=== PATIENT | male | born 1965 | race Caucasian/White ===

== ENCOUNTER 2017-07-31 13:34 | Emergency (ER) | payer BC ==
--- NOTE | 2017-07-31 14:54 | EDM.PDOC ---
ED HPI GENERAL MEDICAL PROBLEM - General Chief Complaint: Lower Extremity Injury/Pain Stated Complaint: LT HIP PAIN Time Seen by Provider: 07/31/17 13:51 Source of Information: Reports: Patient, RN Notes Reviewed - History of Present Illness INITIAL COMMENTS - FREE TEXT/NARRATIVE: 51-year-old male comes in with left low back pain. He has had this intermittently in the past. This started bothering him again about 3-4 days ago and then became more severe yesterday and today. The pain is worse with any type of motion. He works as a log truck driver. It is difficult for him to get into and out of the truck. Even walking for him at this time is uncomfortable. The pain does not radiate. There is no fall or lifting injury that he is aware of. He is concerned about his left hip. He had similar discomfort about 20 years ago and he was told it "was his hip". Treatments CERTIFIED HEALTH EDUCATION SPECIALIST: Reports: Other (see below) Other Treatments CERTIFIED HEALTH EDUCATION SPECIALIST: none Left Hip Pain Score (Numeric/FACES): 3 - Related Data Allergies Allergy/AdvReac Type Severity Reaction Status Date / Time No Known Allergies Allergy Verified 07/31/17 13:54 Home Meds: Home Meds Cyclobenzaprine [Flexeril] 5 mg PO Q8HR PRN #14 tab 07/31/17 [Rx] Naproxen [Naprosyn] 500 mg PO Q12HR #14 tab 07/31/17 [Rx] Past Medical History Respiratory History: Reports: Other (See Below) Other Respiratory History: seasonal allergies Social & Family History - Tobacco Use Smoking Status *Q: Current Every Day Smoker Years of Tobacco use: 30 Packs/Tins Daily: 1 - Caffeine Use Caffeine Use: Reports: Coffee, Soda, Tea - Recreational Drug Use Recreational Drug Use: No Review of Systems - Review of Systems Review Of Systems: See Below Mouth/Throat: Reports: No Symptoms Respiratory: Denies: Shortness of Breath Cardiovascular: Denies: Chest Pain GI/Abdominal: Denies: Abdominal Pain, Nausea, Vomiting Musculoskeletal: Reports: Back Pain (Left low back) Skin: Reports: No Symptoms Neurological: Reports: No Symptoms ED EXAM, GENERAL - Physical Exam Exam: See Below General Appearance: Alert, No Apparent Distress Head: Atraumatic Neck: Supple, Full Range of Motion Respiratory/Chest: No Respiratory Distress, Lungs Clear, Normal Breath Sounds Cardiovascular: Regular Rate, Rhythm GI/Abdominal: Soft, Non-Tender Back Exam: Paraspinal Tenderness (Left low back localized to area of left sacroiliac joint), Other (Back pain worse with motion). No: Vertebral Tenderness Extremities: Normal Inspection, Normal Range of Motion Neurological: Alert, Oriented Skin Exam: Warm, Dry, Normal Color Course - Vital Signs Last Recorded V/S: Last Vital Signs Temp 98.0 F 07/31/17 13:50 Pulse 86 07/31/17 13:50 Resp 20 07/31/17 13:50 BP 139/93 H 07/31/17 13:50 Pulse Ox 98 07/31/17 13:50 - Orders/Labs/Meds Orders: Active Orders 24 hr Category Date Time Status Hip Min 2V or 3V w Pelvis Lt [CR] Stat Exams 07/31/17 14:15 Taken - Re-Assessments/Exams Free Text/Narrative Re-Assessment/Exam: 07/31/17 15:24 X-rays of the left hip are negative Departure - Departure Time of Disposition: 14:50 Disposition: Home, Self-Care 01 Condition: Fair Clinical Impression: Low back strain Qualifiers: Encounter type: initial encounter Qualified Code(s): S39.012A - Strain of muscle, fascia and tendon of lower back, initial encounter - Discharge Information Prescriptions: Cyclobenzaprine [Flexeril] 5 mg PO Q8HR PRN #14 tab PRN Reason: Pain Naproxen [Naprosyn] 500 mg PO Q12HR #14 tab Instructions: Low Back Strain Rehab-SportsMed Referrals: Renzo Chisholm PA-C [Primary Care Provider] - Forms: ED Department Discharge, ED Return to Work/School Form Additional Instructions: Naprosyn 500 mg twice daily for pain and inflammation, Flexeril 5 mg every 8-12 hours as needed for muscle spasm and for muscle relaxation, you also may take Tylenol 2-3 times daily if needed for extra pain relief, alternate heat and ice packs to area of discomfort for further pain relief and to help promote healing , follow-up clinic if not much better within 3-4 days as expected. - My Orders Last 24 Hours: My Active Orders 07/31/17 14:15 Hip Min 2V or 3V w Pelvis Lt [CR] Stat - Assessment/Plan Last 24 Hours: My Active Orders 07/31/17 14:15 Hip Min 2V or 3V w Pelvis Lt [CR] Stat
--- NOTE | 2017-08-02 08:54 | CR ---
Pelvis and left hip: AP view of the pelvis was obtained as well as AP and frog-leg lateral views of the left hip. Comparison: No prior exam. Joint spaces within both hips and sacroiliac joints appear within normal limits. No fracture, dislocation or other bony abnormality is seen. Impression: 1. No abnormality is identified on AP pelvis or on two-view left hip exam. Diagnostic code #1
== END 2017-07-31 15:10 | disposition home or self-care (01) ==
LOC: JD.ED 13:34
DX: S39.012A Strain of muscle, fascia and tendon of lower back, initial encounter (principal); F17.210 Nicotine dependence, cigarettes, uncomplicated; X58.XXXA Exposure to other specified factors, initial encounter
CPT/HCPCS: 73502-26-LT; 73502-LT; 99283